=== PATIENT | female | born 1990 | race Caucasian/White ===

== ENCOUNTER 2017-05-16 10:29 | Emergency (ER) | payer OTHER ==
[~2017-05-16] VITALS: Ht 157.5 cm; Wt 59.1 kg
[~2017-05-16 10:29] MED LIST: FIORICET 50-301 EACH PO; KLONOPIN0.5 M1 PO
[2017-05-16 11:23] LABS: HEMATOCRIT 35.8 % (36.0-46.0); MCH 29.2 PG (29.0-34.0); MCHC 33.5 G/DL (30.0-36.0); MCV 87.1 FL (83-99); MEAN PLAT.VOLUME 8.9 uM^3 (9.5-12.4); PLATELET COUNT 189 K/uL (156-360); RED BLOOD COUNT 4.11 M/uL (3.80-5.20); WHITE BLOOD COUNT 6.5 K/uL (4.1-10.2)
[2017-05-16 11:31] LABS: CHLORIDE 103 mEq/L (99-109); POTASSIUM 4.1 mEq/L (3.7-5.4); SODIUM 138 mEq/L (136-147)
[2017-05-16 11:33] LABS: GLUCOSE 124 mg/dL (70-99)
[2017-05-16 11:34] LABS: ANION GAP 11 MEQ/L (2-14)
[2017-05-16 11:37] LABS: GFR ESTIMATE (CALCULATED) > 59 mL/min/
[2017-05-16 11:38] LABS: UREA NITROGEN (BUN) 13 mg/dL (9-23)
[2017-05-16 11:45] LABS: TROP-I INTERPRETATION NEGATIVE; TROPONIN-I < 0.01 ng/mL (0.0-0.30)
[2017-05-16 12:43] LABS: ADD MIUA? YES; BILIRUBIN NEGATIVE; BLOOD NEGATIVE; COLOR YELLOW ((YELLOW)); GLUCOSE (STRIP) NEGATIVE; KETONES NEGATIVE; LEUKOCYTES NEGATIVE; NITRITE NEGATIVE; PROTEIN (STRIP) NEGATIVE; SPECIFIC GRAVITY 1.011 (1.000-1.030); UROBILINOGEN 0.2 MG/DL (0.2-1.0)
[2017-05-16 12:52] LABS: INTERNAL CONTROL VALID? YES
[2017-05-16 12:58] LABS: BACTERIA RARE /HPF; EPITHELIAL CELLS RARE /HPF; MUCUS NONE SEEN /LPF; RED BLOOD CELLS 0-5 /HPF (0-5); UCUL ADDED? NO; WHITE BLOOD CELLS 0-5 /HPF (0-5)
[2017-05-16 14:23] VITALS: BP 126/73
== END 2017-05-16 14:49 | disposition home or self-care (01) ==
LOC: EME 10:29
PROVIDERS: Emergency Medicine
DX: R55 Syncope and collapse (principal); M54.2 Cervicalgia
CPT/HCPCS: 71010; 80048; 81003; 84484; 84703; 85027; 93005; 99281; 99285; J7030

== ENCOUNTER 2018-05-08 06:39 | Day surgery (SDC) | payer OTHER ==
[~2018-05-08] VITALS: Ht 157.5 cm; Wt 59.0 kg
[~2018-05-08 06:39] MED LIST changes: +WELLBUTRIN SR150 MG PO
[2018-05-08 07:27] LABS: BASOPHIL (%) 0.9 % (0-1); BASOPHIL COUNT 0.1 K/uL (0-0.1); EOSINOPHIL (%) 3.7 % (0-5); EOSINOPHIL COUNT 0.3 K/uL (0-0.3); HEMATOCRIT 38.5 % (36.0-46.0); HEMOGLOBIN 13.1 G/DL (11.9-15.5); IMMATURE GRANULOCYTE (%) 0.3 % (0.0-0.7); LYMPHOCYTE (%) 26.9 % (15-42); LYMPHOCYTE COUNT 2.1 K/uL (1.0-2.8); MCH 29.6 PG (29.0-34.0); MCV 86.9 FL (83-99); MONOCYTE (%) 8.9 % (3-12); MONOCYTE COUNT 0.7 K/uL (0-0.8); NEUTROPHIL (%) 59.3 % (45-76); NEUTROPHIL COUNT 4.6 K/uL (1.8-6.4); PLATELET COUNT 211 K/uL (156-360); RBC DIS.WIDTH-CV 12.9 % (11.8-14.6); RBC DIS.WIDTH-SD 40.5 % (39-53); RED BLOOD COUNT 4.43 M/uL (3.80-5.20); WHITE BLOOD COUNT 7.7 K/uL (4.1-10.2)
[2018-05-08 07:32] VITALS: BP 107/69
[2018-05-08] MEDS ORDERED: MOTRIN800 MG PO (09:20)
[2018-05-08 09:51] VITALS: BP 115/61
[2018-05-08 10:55] VITALS: BP 99/60
== END 2018-05-08 11:00 | disposition home or self-care (01) ==
LOC: SDC 06:39
PROVIDERS: Obstetrics & Gynecology
DX: N87.0 Mild cervical dysplasia (principal); Z30.430 Encounter for insertion of intrauterine contraceptive device; F41.9 Anxiety disorder, unspecified
CPT/HCPCS: 84702; 85025; J1100; J1885; J2250; J2405; J3010; Q0175